=== PATIENT | female | born 2005 | race Caucasian/White ===

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

== ENCOUNTER 2025-01-17 18:41 | Emergency (ER) | payer SELFPAY ==
--- OUTSIDE RECORDS SUMMARY | 2025-01-17 18:46 | XMS REPORT | Continuity of Care Document ---
Author Name Unknown Address [address] [facility] [address] [place] [address] [facility] thconnect Address [address] [facility] 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 Name Role Phone Jose Collins Primary Care Physician + Melissa Del Rosario DNP Attending Clinician [phone] Doctor Unassigned, Morales-Sanchez Attending Clinician U LOGAN Ramon Attending Clinician LOGAN Basurto Attending Clinician Loagn Basurto MD Attending Clinician [phone] SELINA HART Attending Clinician Unavailable Jose Gallegos Attending Clinician + [phone] JOSE TAYLOR Attending Clinician Unavail LOGAN Scott Admitting Clinician Logan Basurto MD Admitting Clinician [phone] Payers Payer Name Policy Type Policy Number Effective Date Expirati on Date Source Problems Condition Name Condition Details Condition Category Status Onset Date Resolution Date Last Treatment Date Treating Clinician Comments Source Pyelonephr itis Pyelonephr itis Disease Active 05-16 00:00: 00 [facility] Nexplanon in place Nexplanon in place Disease Active 06-07 00:00: 00 [facility] No known active problems No known active problems Disease [facility] Allergies, Adverse Reactions, Alerts Allergy Name Allergy Type Status Severity Reaction(s) Onset Date Inactive Date Treating Clinician Comments Source NO KNOWN ALLERGIE S Drug Class Active [facility] Family History Family Member Diagnosis Comments Start Date Stop Date Sourc e Natural father Unive [facility] Maternal grandfather Hypertension [facility] Natural mother Unive [facility] Social History Social Habit Start Date Stop Date Quantity Comments Source History SDOH [facility] SDOH Alcohol Binge [facility] History SDOH Alcohol Comment [place] o f [facility] History of tobacco use Passive smoker [facility] Alcoholic beverage intake 2024-05-10 00:00:00 2024-05-10 00:00:00 Lifetime non-drinker (finding) [facility] Tobacco use and exposure 2024-04-11 00:00:00 2024-04-11 00:00:00 Smokeless tobacco non-user [facility] History of Social function 2024-04-11 00:00:00 2024-04-11 00:00:00 [facility] Alcohol intake 2022-05-16 00:00:00 2022-05-16 00:00:00 Lifetime non-drinker (finding) [facility] History SDOH Alcohol Frequency 2021-05-17 00:00:00 2021-05-17 00:00:00 1 [facility] Sex assigned at 2005 00:00:00 2005 00:00:00 [facility] Smoking Status Start Date Stop Date Source Never smoked tobacco [facility] Unknown if ever smoked Un[facility] Medications Ordered Medication Name Filled Medication Name Start Date Stop Date Current Medication? Ordering Clinician Indication Dosage Frequency Signature (SIG) Comments Components Source ciprofloxac in HCl 500 mg tablet 05-19 00:00: 00 05-23 04:59 :00 No [id number] 500mg Take 1 tablet by mouth every 12 (twelve) hours for 3 days. [facility] ondansetron (ZOFRAN (PF)) injection 8 mg 05-18 17:00: 00 05-21 16:59 :00 No 8mg 8 mg, Slow IV Push, Q6H, 12 doses, First dose (after last modificati on) on Thu05/18/22 at 1200, Last dose on Thu05/21/22 at 0600, Routine [facility] morpHINE (2 mg/mL) injection 2 mg 05-18 03:34: 16 Yes 2mg 2 mg, Slow IV Push, Q4HPRN, Starting on 05/17/22 at 2234, Until Discontinu ed, Routine, Pain (scale 7-10) [facility] acetaminoph en (TYLENOL) tablet 650 mg 05-18 01:24: 43 Yes 650mg 650 mg, Oral, Q6HPRN, Starting on 05/17/22 at 2024, Until Discontinu ed, Routine, Pain (scale 1-3), Pain (scale 4-6), Temp > 38.5 C [facility] NaCl 0.9% (NS) bolus infusion 500 mL 05-18 00:15: 00 05-18 00:25 :00 No 500mL at 999 mL/hr, 500 mL, IV Infusion, ONCE, 1 dose, On 05/17/22 at 1915, STAT [facility] proMETHazin e (PHENERGAN) 12.5 mg in NS 50 mL IV piggyback (CNR) 05-17 23:01: 46 Yes 12.5mg 12.5 mg, IV Piggyback, at 200 mL/hr Administer over 15 Minutes, Q4HPRN, Starting on 05/17/22 at 1801, Until Discontinu ed, Routine, Nausea and Vomiting (N/V) [facility] ceFAZolin (ANCEF) 1,000 mg in NaCl 0.9% (NS) 50 mL MINI-BAG 05-17 19:15: 00 Yes 1000mg 1,000 mg, Intravenou s, Q8H ABX, First dose on 05/17/22 at 1415, Until Discontinu ed, Administer over 30 Minutes, 50 mL
Reas on for Anti-Infec tive: Documented Infection< br>Documen negra Infection Site: Urine
D uration of Therapy: 7 days [facility] NaCl 0.9% (NS) bolus infusion 500 mL 05-17 18:15: 00 05-17 17:52 :00 No 500mL at 999 mL/hr, 500 mL, IV Infusion, ONCE, 1 dose, On Thu05/17/22 at 1315, STAT [facility] D5W 0.45% NaCl (1/2NS) IV infusion 1,000 mL 05-17 14:45: 00 05-18 22:31 :24 No 1000mL at 112 mL/hr, 1,000 mL, IV Infusion, CONTINUOUS , Starting on Thu05/17/22 at 0945, Until 05/18/22 at 1731, Routine [facility] ondansetron (ZOFRAN (PF)) injection 8 mg 05-17 01:45: 00 05-17 17:53 :00 No 8mg 8 mg, Slow IV Push, Q8H ABX, 3 doses, First dose (after last modificati on) on Thu05/16/22 at 204, Last dose on 05/17/22 at 1245, Routine [facility] D5W 0.9% NaCl (NS) IV infusion 1,000 mL 05-17 01:33: 00 05-17 13:04 :51 No 1000mL at 100 mL/hr, 1,000 mL, IV Infusion, CONTINUOUS , Starting on Thu05/16/22 at 204, Until 05/17/22 at 0804, Routine [facility] acetaminoph en (TYLENOL) tablet 650 mg 05-17 01:32: 05 05-18 01:24 :59 No 650mg 650 mg, Oral, Q6HPRN, Starting on Thu05/16/22 at 2031, Until 05/17/22 at 2023, Routine, Temp > 38.5 C [facility] lidocaine 4% (L-M-X 4) 4 % cream 05-17 01:29: 11 Yes Topical, PRN - SEE INSTRUCTIO NS, Starting on Thu05/16/22 at 2028, Until Discontinu ed, Routine, For use with IV insertion and blood draw procedures . [facility] ketorolac (TORADOL) injection 30 mg 05-17 01:26: 50 05-17 14:36 :24 No 30mg 30 mg, Slow IV Push, Q6HPRN, 4 doses, Starting on Thu05/16/22 at 2025, Until 05/17/22 at 0936, Routine, Pain (scale 4-6) [facility] No known medications 05-16 18:46: 28 No No known medication s [facility] benzonatate 100 mg capsule 03-26 00:00: 00 05-19 00:00 :00 No 1{capsu le} Take 1 capsule by mouth 3 (three) times daily. [facility] No known medications No [facility] No known medications No [facility] Immunizations Ordered Immunization Name Filled Immunization Name Date Status Comments Source HPV9 2021-06-07 00:00:00 Completed [facility] HPV9 2021-06-07 00:00:00 Completed [facility] HPV9 2021-06-07 00:00:00 Completed [facility] Meningococcal Vaccine 2018-06-30 00:00:00 Completed [facility] TDAP 2018-06-30 00:00:00 Completed [facility] Meningococcal Vaccine 2018-06-30 00:00:00 Completed [facility] TDAP 2018-06-30 00:00:00 Completed [facility] Meningococcal Vaccine 2018-06-30 00:00:00 Completed [facility] TDAP 2018-06-30 00:00:00 Completed [facility] Meningococcal Vaccine 2018-06-30 00:00:00 Completed [facility] TDAP 2018-06-30 00:00:00 Completed [facility] Meningococcal Vaccine 2018-06-30 00:00:00 Completed [facility] TDAP 2018-06-30 00:00:00 Completed [facility] Meningococcal Vaccine 2018-06-30 00:00:00 Completed [facility] TDAP 2018-06-30 00:00:00 Completed [facility] Meningococcal Vaccine 2018-06-30 00:00:00 Completed TDAP 2018-06-30 00:00:00 Completed Pneumococcal 13 Conjugate, PCV13 (Prevnar 13) 2007-03-25 00:00:00 Completed [facility] DTAP 2007-03-25 00:00:00 Completed [facility] Pneumococcal 13 Conjugate, PCV13 (Prevnar 13) 2007-03-25 00:00:00 Completed [facility] DTAP 2007-03-25 00:00:00 Completed [facility] Pneumococcal 13 Conjugate, PCV13 (Prevnar 13) 2007-03-25 00:00:00 Completed [facility] DTAP 2007-03-25 00:00:00 Completed [facility] Pneumococcal 13 Conjugate, PCV13 (Prevnar 13) 2007-03-25 00:00:00 Completed [facility] DTAP 2007-03-25 00:00:00 Completed [facility] DTAP 2007-03-25 00:00:00 Completed [facility] Pneumococcal 13 Conjugate, PCV13 (Prevnar 13) 2007-03-25 00:00:00 Completed [facility] Pneumococcal 13 Conjugate, PCV13 (Prevnar 13) 2007-03-25 00:00:00 Completed [facility] DTAP 2007-03-25 00:00:00 Completed Pneumococcal 13 Conjugate, PCV13 (Prevnar 13) 2007-03-25 00:00:00 Completed DTAP 2007-03-25 00:00:00 Completed [facility] MMR 2006-12-18 00:00:00 Completed [facility] Varicella (varivax)(chicken pox) 2006-12-18 00:00:00 Completed [facility] HIB 4 Dose Schedule 2006-12-18 00:00:00 Completed [facility] HEPATITIS A 2006-12-18 00:00:00 Completed [facility] MMR 2006-12-18 00:00:00 Completed [facility] Varicella (varivax)(chicken pox) 2006-12-18 00:00:00 Completed [facility] HIB 4 Dose Schedule 2006-12-18 00:00:00 Completed [facility] HEPATITIS A 2006-12-18 00:00:00 Completed [facility] MMR 2006-12-18 00:00:00 Completed [facility] Varicella (varivax)(chicken pox) 2006-12-18 00:00:00 Completed [facility] HIB 4 Dose Schedule 2006-12-18 00:00:00 Completed [facility] HEPATITIS A 2006-12-18 00:00:00 Completed [facility] MMR 2006-12-18 00:00:00 Completed [facility] Varicella (varivax)(chicken pox) 2006-12-18 00:00:00 Completed [facility] HIB 4 Dose Schedule 2006-12-18 00:00:00 Completed [facility] HEPATITIS A 2006-12-18 00:00:00 Completed [facility] MMR 2006-12-18 00:00:00 Completed [facility] HIB 4 Dose Schedule 2006-12-18 00:00:00 Completed [facility] Varicella (varivax)(chicken pox) 2006-12-18 00:00:00 Completed [facility] HEPATITIS A 2006-12-18 00:00:00 Completed [facility] MMR 2006-12-18 00:00:00 Completed [facility] Varicella (varivax)(chicken pox) 2006-12-18 00:00:00 Completed [facility] HIB 4 Dose Schedule 2006-12-18 00:00:00 Completed HEPATITIS A 2006-12-18 00:00:00 Completed MMR 2006-12-18 00:00:00 Completed Varicella (varivax)(chicken pox) 2006-12-18 00:00:00 Completed HIB 4 Dose Schedule 2006-12-18 00:00:00 Completed [facility] HEPATITIS A 2006-12-18 00:00:00 Completed [facility] Hep B, Adol or Pedi Dosage 2006-06-15 00:00:00 Completed [facility] Pneumococcal 13 Conjugate, PCV13 (Prevnar 13) 2006-06-15 00:00:00 Completed [facility] Polio (IPV/OPV) 2006-06-15 00:00:00 Completed [facility] DTAP 2006-06-15 00:00:00 Completed [facility] HIB 4 Dose Schedule 2006-06-15 00:00:00 Completed [facility] Hep B, Adol or Pedi Dosage 2006-06-15 00:00:00 Completed [facility] Pneumococcal 13 Conjugate, PCV13 (Prevnar 13) 2006-06-15 00:00:00 Completed [facility] Polio (IPV/OPV) 2006-06-15 00:00:00 Completed [facility] DTAP 2006-06-15 00:00:00 Completed [facility] HIB 4 Dose Schedule 2006-06-15 00:00:00 Completed [facility] Hep B, Adol or Pedi Dosage 2006-06-15 00:00:00 Completed [facility] Pneumococcal 13 Conjugate, PCV13 (Prevnar 13) 2006-06-15 00:00:00 Completed [facility] Polio (IPV/OPV) 2006-06-15 00:00:00 Completed [facility] DTAP 2006-06-15 00:00:00 Completed [facility] HIB 4 Dose Schedule 2006-06-15 00:00:00 Completed [facility] Hep B, Adol or Pedi Dosage 2006-06-15 00:00:00 Completed [facility] Pneumococcal 13 Conjugate, PCV13 (Prevnar 13) 2006-06-15 00:00:00 Completed [facility] Polio (IPV/OPV) 2006-06-15 00:00:00 Completed [facility] DTAP 2006-06-15 00:00:00 Completed [facility] DTAP 2006-06-15 00:00:00 Completed [facility] HIB 4 Dose Schedule 2006-06-15 00:00:00 Completed [facility] HIB 4 Dose Schedule 2006-06-15 00:00:00 Completed [facility] Hep B, Adol or Pedi Dosage 2006-06-15 00:00:00 Completed [facility] Pneumococcal 13 Conjugate, PCV13 (Prevnar 13) 2006-06-15 00:00:00 Completed [facility] Polio (IPV/OPV) 2006-06-15 00:00:00 Completed [facility] Hep B, Adol or Pedi Dosage 2006-06-15 00:00:00 Completed [facility] Pneumococcal 13 Conjugate, PCV13 (Prevnar 13) 2006-06-15 00:00:00 Completed [facility] Polio (IPV/OPV) 2006-06-15 00:00:00 Completed [facility] DTAP 2006-06-15 00:00:00 Completed HIB 4 Dose Schedule 2006-06-15 00:00:00 Completed Hep B, Adol or Pedi Dosage 2006-06-15 00:00:00 Completed Pneumococcal 13 Conjugate, PCV13 (Prevnar 13) 2006-06-15 00:00:00 Completed Polio (IPV/OPV) 2006-06-15 00:00:00 Completed DTAP 2006-06-15 00:00:00 Completed [facility] HIB 4 Dose Schedule 2006-06-15 00:00:00 Completed [facility] Hep B, Adol or Pedi Dosage 2006-04-14 00:00:00 Completed [facility] Pneumococcal 13 Conjugate, PCV13 (Prevnar 13) 2006-04-14 00:00:00 Completed [facility] Polio (IPV/OPV) 2006-04-14 00:00:00 Completed [facility] DTAP 2006-04-14 00:00:00 Completed [facility] HIB 4 Dose Schedule 2006-04-14 00:00:00 Completed [facility] Hep B, Adol or Pedi Dosage 2006-04-14 00:00:00 Completed [facility] Pneumococcal 13 Conjugate, PCV13 (Prevnar 13) 2006-04-14 00:00:00 Completed [facility] Polio (IPV/OPV) 2006-04-14 00:00:00 Completed [facility] DTAP 2006-04-14 00:00:00 Completed [facility] HIB 4 Dose Schedule 2006-04-14 00:00:00 Completed [facility] Hep B, Adol or Pedi Dosage 2006-04-14 00:00:00 Completed [facility] Pneumococcal 13 Conjugate, PCV13 (Prevnar 13) 2006-04-14 00:00:00 Completed [facility] Polio (IPV/OPV) 2006-04-14 00:00:00 Completed [facility] DTAP 2006-04-14 00:00:00 Completed [facility] HIB 4 Dose Schedule 2006-04-14 00:00:00 Completed [facility] Hep B, Adol or Pedi Dosage 2006-04-14 00:00:00 Completed [facility] Pneumococcal 13 Conjugate, PCV13 (Prevnar 13) 2006-04-14 00:00:00 Completed [facility] Polio (IPV/OPV) 2006-04-14 00:00:00 Completed [facility] DTAP 2006-04-14 00:00:00 Completed [facility] HIB 4 Dose Schedule 2006-04-14 00:00:00 Completed [facility] DTAP 2006-04-14 00:00:00 Completed [facility] HIB 4 Dose Schedule 2006-04-14 00:00:00 Completed [facility] Hep B, Adol or Pedi Dosage 2006-04-14 00:00:00 Completed [facility] Pneumococcal 13 Conjugate, PCV13 (Prevnar 13) 2006-04-14 00:00:00 Completed [facility] Polio (IPV/OPV) 2006-04-14 00:00:00 Completed [facility] Hep B, Adol or Pedi Dosage 2006-04-14 00:00:00 Completed [facility] Pneumococcal 13 Conjugate, PCV13 (Prevnar 13) 2006-04-14 00:00:00 Completed [facility] Polio (IPV/OPV) 2006-04-14 00:00:00 Completed [facility] DTAP 2006-04-14 00:00:00 Completed HIB 4 Dose Schedule 2006-04-14 00:00:00 Completed Hep B, Adol or Pedi Dosage 2006-04-14 00:00:00 Completed Pneumococcal 13 Conjugate, PCV13 (Prevnar 13) 2006-04-14 00:00:00 Completed Polio (IPV/OPV) 2006-04-14 00:00:00 Completed DTAP 2006-04-14 00:00:00 Completed [facility] HIB 4 Dose Schedule 2006-04-14 00:00:00 Completed [facility] Pneumococcal 13 Conjugate, PCV13 (Prevnar 13) 2006-02-12 00:00:00 Completed [facility] Polio (IPV/OPV) 2006-02-12 00:00:00 Completed [facility] DTAP 2006-02-12 00:00:00 Completed [facility] HIB 4 Dose Schedule 2006-02-12 00:00:00 Completed [facility] Hep B, Adol or Pedi Dosage 2006-02-12 00:00:00 Completed [facility] Pneumococcal 13 Conjugate, PCV13 (Prevnar 13) 2006-02-12 00:00:00 Completed [facility] Polio (IPV/OPV) 2006-02-12 00:00:00 Completed [facility] DTAP 2006-02-12 00:00:00 Completed [facility] HIB 4 Dose Schedule 2006-02-12 00:00:00 Completed [facility] Hep B, Adol or Pedi Dosage 2006-02-12 00:00:00 Completed [facility] Pneumococcal 13 Conjugate, PCV13 (Prevnar 13) 2006-02-12 00:00:00 Completed [facility] Polio (IPV/OPV) 2006-02-12 00:00:00 Completed [facility] DTAP 2006-02-12 00:00:00 Completed [facility] HIB 4 Dose Schedule 2006-02-12 00:00:00 Completed [facility] Hep B, Adol or Pedi Dosage 2006-02-12 00:00:00 Completed [facility] Pneumococcal 13 Conjugate, PCV13 (Prevnar 13) 2006-02-12 00:00:00 Completed [facility] DTAP 2006-02-12 00:00:00 Completed [facility] Polio (IPV/OPV) 2006-02-12 00:00:00 Completed [facility] HIB 4 Dose Schedule 2006-02-12 00:00:00 Completed [facility] DTAP 2006-02-12 00:00:00 Completed [facility] HIB 4 Dose Schedule 2006-02-12 00:00:00 Completed [facility] Hep B, Adol or Pedi Dosage 2006-02-12 00:00:00 Completed [facility] Pneumococcal 13 Conjugate, PCV13 (Prevnar 13) 2006-02-12 00:00:00 Completed [facility] Polio (IPV/OPV) 2006-02-12 00:00:00 Completed [facility] Hep B, Adol or Pedi Dosage 2006-02-12 00:00:00 Completed [facility] Pneumococcal 13 Conjugate, PCV13 (Prevnar 13) 2006-02-12 00:00:00 Completed [facility] Polio (IPV/OPV) 2006-02-12 00:00:00 Completed [facility] DTAP 2006-02-12 00:00:00 Completed HIB 4 Dose Schedule 2006-02-12 00:00:00 Completed Hep B, Adol or Pedi Dosage 2006-02-12 00:00:00 Completed Pneumococcal 13 Conjugate, PCV13 (Prevnar 13) 2006-02-12 00:00:00 Completed Polio (IPV/OPV) 2006-02-12 00:00:00 Completed DTAP 2006-02-12 00:00:00 Completed [facility] HIB 4 Dose Schedule 2006-02-12 00:00:00 Completed [facility] Hep B, Adol or Pedi Dosage 2006-02-12 00:00:00 Completed [facility] Hep B, Adol or Pedi Dosage 2005 00:00:00 Completed [facility] Hep B, Adol or Pedi Dosage 2005 00:00:00 Completed [facility] Hep B, Adol or Pedi Dosage 2005 00:00:00 Completed [facility] Hep B, Adol or Pedi Dosage 2005 00:00:00 Completed [facility] Hep B, Adol or Pedi Dosage 2005 00:00:00 Completed [facility] Hep B, Adol or Pedi Dosage 2005 00:00:00 Completed Hep B, Adol or Pedi Dosage 2005 00:00:00 Completed [facility] HEPATITIS A Unknown Completed [facility] Meningococcal Vaccine Unknown Completed [facility] MMR Unknown Completed [facility] TDAP Unknown Completed [facility] Varicella (varivax)(chicken pox) Unknown Completed [facility] HPV9 Unknown Completed [facility] DTAP Unknown Completed [facility] HIB 4 Dose Schedule Unknown Completed [facility] Hep B, Adol or Pedi Dosage Unknown Completed [facility] Pneumococcal 13 Conjugate, PCV13 (Prevnar 13) Unknown Completed [facility] Polio (IPV/OPV) Unknown [facility] HEPATITIS A Unknown Completed [facility] Meningococcal Vaccine Unknown Completed [facility] MMR Unknown Completed [facility] TDAP Unknown Completed [facility] Varicella (varivax)(chicken pox) Unknown Completed [facility] HPV9 Unknown Completed [facility] DTAP Unknown Completed [facility] HIB 4 Dose Schedule Unknown Completed [facility] Hep B, Adol or Pedi Dosage Unknown Completed [facility] Pneumococcal 13 Conjugate, PCV13 (Prevnar 13) Unknown Completed [facility] Polio (IPV/OPV) Unknown [facility] Vital Signs Vital Name Observation Time Observation Value Comments S ource Systolic blood pressure 2024-05-09 21:32:00 114 mm[Hg] [facility] Diastolic blood pressure 2024-05-09 21:32:00 71 mm[Hg] [facility] Heart rate 2024-05-09 21:32:00 81 /min [facility] Respiratory rate 2024-05-09 21:32:00 18 /min [facility] Body height 2024-05-09 21:32:00 160 cm [facility] Body weight 2024-05-09 21:32:00 71.668 kg [facility] BMI 2024-05-09 21:32:00 27.99 kg/m2 [facility] Body mass index (BMI) [Percentile] Per age and sex 2024-05-09 21:32:00 91.24 % [facility] Systolic blood pressure 2024-04-11 19:48:00 119 mm[Hg] [facility] Diastolic blood pressure 2024-04-11 19:48:00 75 mm[Hg] [facility] Heart rate 2024-04-11 19:48:00 93 /min [facility] Respiratory rate 2024-04-11 19:48:00 18 /min [facility] Body height 2024-04-11 19:48:00 160 cm [facility] Body weight 2024-04-11 19:48:00 71.215 kg [facility] BMI 2024-04-11 19:48:00 27.81 kg/m2 [facility] Body mass index (BMI) [Percentile] Per age and sex 2024-04-11 19:48:00 90.95 % [facility] Systolic blood pressure 2022-05-19 13:00:00 147 mm[Hg] [facility] Diastolic blood pressure 2022-05-19 13:00:00 92 mm[Hg] [facility] Heart rate 2022-05-19 13:00:00 75 /min [facility] Body temperature 2022-05-19 13:00:00 37 Susanna [facility] Respiratory rate 2022-05-19 13:00:00 18 /min [facility] Oxygen saturation in Arterial blood by Pulse oximetry 2022-05-19 13:00:00 98 /min [facility] Body height 2022-05-17 00:00:00 160 cm [facility] Body weight 2022-05-17 00:00:00 71.7 kg [facility] BMI 2022-05-17 00:00:00 28.01 kg/m2 [facility] Body mass index (BMI) [Percentile] Per age and sex 2022-05-17 00:00:00 93.42 % [facility] Systolic blood pressure 2021-05-15 15:06:00 120 mm[Hg] [facility] Diastolic blood pressure 2021-05-15 15:06:00 82 mm[Hg] [facility] Heart rate 2021-05-15 15:06:00 113 /min [facility] Body temperature 2021-05-15 15:06:00 36.56 Susanna [facility] Respiratory rate 2021-05-15 15:06:00 19 /min [facility] Body height 2021-05-15 15:06:00 160 cm [facility] Body weight 2021-05-15 15:06:00 72.122 kg [facility] BMI 2021-05-15 15:06:00 28.17 kg/m2 [facility] Oxygen saturation in Arterial blood by Pulse oximetry 2021-05-15 15:06:00 98 /min [facility] Systolic blood pressure 2024-05-09 21:32:00 114 mm[Hg] [facility] Diastolic blood pressure 2024-05-09 21:32:00 71 mm[Hg] [facility] Heart rate 2024-05-09 21:32:00 81 /min [facility] Respiratory rate 2024-05-09 21:32:00 18 /min [facility] Body height 2024-05-09 21:32:00 160 cm [facility] Body weight 2024-05-09 21:32:00 71.668 kg [facility] BMI 2024-05-09 21:32:00 27.99 kg/m2 [facility] Body mass index (BMI) [Percentile] Per age and sex 2024-05-09 21:32:00 91.24 % [facility] Body temperature 2022-05-19 13:00:00 37 Susanna [facility] Oxygen saturation in Arterial blood by Pulse oximetry 2022-05-19 13:00:00 98 /min [facility] Procedures Procedure Date / Time Performed Performing Clinician Source GC & CHLAMYDIA AMPLIFIED ASSAY 2024-04-11 19:56:00 Melissa Del Rosario [facility] EXTERNAL PROVIDER RECORDS 2022-06-10 05:01:00 Do ctor Unassigned, Morales-Sanchez [facility] BASIC METABOLIC PANEL (NA, K, CL, CO2, GLUCOSE, BUN, CREATININE, CA) 2022-05-19 11:33:00 Maurice [facility] US RETROPERITONEAL COMPLETE 2022-05-18 19:29:41 Waleska [facility] BASIC METABOLIC PANEL (NA, K, CL, CO2, GLUCOSE, BUN, CREATININE, CA) 2022-05-18 19:16:00 Parish [facility] EXTRA TUBE LT. GREEN 2022-05-18 19:16:00 Isaak [facility] BASIC METABOLIC PANEL (NA, K, CL, CO2, GLUCOSE, BUN, CREATININE, CA) 2022-05-18 10:59:00 Parish [facility] BASIC METABOLIC PANEL (NA, K, CL, CO2, GLUCOSE, BUN, CREATININE, CA) 2022-05-18 03:20:00 Parish [facility] BASIC METABOLIC PANEL (NA, K, CL, CO2, GLUCOSE, BUN, CREATININE, CA) 2022-05-17 19:40:00 Parish [facility] HIV 1/2 AG-AB WITH REFLEX 2022-05-17 19:40:00 Rj Alejandre [facility] HIV 1/2 AG-AB WITH REFLEX 2022-05-17 19:40:00 Rj Alejandre [facility] OSMOLALITY URINE 2022-05-17 15:40:00 [facility] CREATININE, URINE RANDOM 2022-05-17 15:40:00 Prisca [facility] SODIUM, URINE RANDOM 2022-05-17 15:40:[address] [facility] URINALYSIS 2022-05-17 10:08:00 Caroline Yates [facility] PHOSPHORUS 2022-05-17 09:54:00 Parish Candelario [facility] CREATINE KINASE 2022-05-17 09:54:00 Parish Candelario [facility] BASIC METABOLIC PANEL (NA, K, CL, CO2, GLUCOSE, BUN, CREATININE, CA) 2022-05-17 09:54:00 Milan [facility] LIPASE 2022-05-17 01:48:00 Milan [facility] COMP. METABOLIC PANEL ([id number]) 2022-05-17 01:48:00 [place] [facility] CBC WITH DIFF 2022-05-17 01:48:00 [place] Caroline [facility] CBC WITH DIFF 2022-05-17 01:48:00 Milan [facility] VACCINATIONS - CONSENTS, ELIGIBILITY, HISTORY 2021-06-06 05:01:00 Doctor Unassigned, [facility] ASSIGNMENT OF BENEFITS 2021-05-15 14:57:00 Docto r Unassigned, [facility] Encounters Start Date/Time End Date/Time Encounter Type Admission Type Attending [facility] Facility Care Department Encounter ID Source 2024-05-09 16:30:00 2024-05-09 17:00:00 Office Visit MagdyMelissa scott [facility] [id number] 350.1.13.10 4.2.7.2.686 [id number] [facility] 2024-05-09 16:30:00 2024-05-09 16:30:00 Outpatient R CARIN MELISSA [facility] [id number] [facility] 2024-04-25 16:30:00 2024-04-25 16:30:00 Outpatient R MELISSA DEL ROSARIO [facility] [id number] [facility] 2024-04-11 14:30:00 2024-04-11 15:03:52 Outpatient R CARIN MELISSA [facility] [id number] [facility] 2024-04-11 14:30:00 2024-04-11 15:03:52 Office Visit Melissa Del Rosario [facility] 1..840.114 350.1.13.10 4.2.7.2.686 [id number] [facility] 2022-06-10 00:00:00 2022-06-10 00:00:00 Orders Only Doctor Unassigned, Morales-Sanchez [facility] 1.2.840.114 350.1.13.10 4.2.7.2.686 [id number] [facility] 2022-05-16 18:35:00 2022-05-19 12:00:00 Inpatient LOGAN GARCIA MARIE [facility] PED [id number] [facility] 2022-05-16 18:35:00 2022-05-19 12:00:00 Hospital Encounter Logan Ellis [facility] ([facility]) 1.2840.114 350.1.13.10 4.2.7.2.686 [id number] [facility] 2021-06-07 14:00:00 2021-06-07 14:00:00 Outpatient SELINA HINDS [facility] [id number] [facility] 2021-06-06 00:00:00 2021-06-06 00:00:00 Orders Only Doctor Unassigned, Morales-Sanchez [facility] 1.2840.114 350.1.13.10 4.2.7.2.686 [id number] [facility] 2021-05-28 00:00:00 2021-05-28 00:00:00 Telephone [facility] 1.2840.114 350.1.13.10 4.2.7.2.686 [id number] [facility] 2021-05-17 13:00:00 2021-05-17 13:00:00 Outpatient SELINA HINDS [facility] [id number] [facility] 2021-05-15 09:57:17 2021-05-15 10:21:14 Office Visit [facility] 1.2840.114 350.1.13.10 4.2.7.2.686 [id number] [facility] 2021-05-15 09:40:00 2021-05-15 09:40:00 Outpatient R TAYLOR [facility] [id number] [facility] 2021-05-15 00:00:00 2021-05-15 00:00:00 Orders Only Doctor Unassigned, Morales-Sanchez [facility] 1.2840.114 350.1.13.10 4.2.7.2.686 [id number] [facility] Results Test Description Test Time Test Comments Results Result Co mments Source [facility] METABOLIC PANEL (NA, K, CL, CO2, GLUCOSE, BUN, CREATININE, CA)2022-05-18 19:54:43* Test Item Value Reference Range Interpretation Comme nts NA (test code = 1742985050) 142 mmol/L 135-145 K (test code = 1907095539) 3.8 mmol/L 3.5-5.0 Slight hemolysis CL (test code = 7390860993) 109 mmol/L 98-108 H CO2 TOTAL (test code = 0740919232) 25 mmol/L 23-31 AGAP (test code = 8618354558) 2-16 BUN (test code = 8860172573) 7 mg/dL 7-23 Slight hemolysis GLUCOSE (test code = 4066469753) 58 mg/dL 70-110 L CREATININE (test code = 8214653518) 1.31 mg/dL 0.50-1.04 H CALCIUM (test code = 6553129117) 8.5 mg/dL 8.6-10.6 L JOURDAN (test code = JOURDAN) Association of Glomerular Filtration Rate (GFR) and Staging of Kidney Disease* + -----+ --------+ +| GFR (mL/min/1.73 m2) ?| With Kidney Damage ?| ?Without Kidney Damage+ +------- +---- --+| ?>90 ?| ?Stage one ?| ? Normal ?+ ------+ ---------+--------- +| ?60-89 ?| ?Stage two ?| ? Decreased GFR ? + -----+ --------+ +| ?30-59 ?| ?Stage three ?| ? Stage three ? + -----+ --------+ +| ?15-29 ?| ?Stage four ? | ? Stage four ?+ ------+ ---------+--------- +| ?<15 (or dialysis) ? ?| ?Stage five ? | ? Stage five ?+ ------+ ---------+--------- + *Each stage assumes the associated GFR level has been in effect for at least three months. ?Stages 1 to 5, with or without kidney disease, indicate chronic kidney disease. Notes: Determination of stages one and two (with eGFR >59mL/min/1.73 m2) requires estimation of kidney damage for at least three months as defined by structural or functional abnormalities of the kidney, manifested by either:Pathological abnormalities or Markers of kidney damage (including abnormalities in the composition of the blood or urine or abnormalities in imaging tests). Lab Interpretation (test code = 38846-1) Abnormal [facility] METABOLIC PANEL (NA, K, CL, CO2, GLUCOSE, BUN, CREATININE, CA)2022-05-18 11:37:02* Test Item Value Reference Range Interpretation Comme nts NA (test code = 4372959482) 138 mmol/L 135-145 K (test code = 7122974397) 3.5 mmol/L 3.5-5.0 CL (test code = 2324270536) 112 mmol/L 98-108 H CO2 TOTAL (test code = 4211942748) 21 mmol/L 23-31 L AGAP (test code = 4229807260) 2-16 BUN (test code = 1918669392) 9 mg/dL 7-23 GLUCOSE (test code = 1355664089) 109 mg/dL 70-110 CREATININE (test code = 4616242020) 1.54 mg/dL 0.50-1.04 H CALCIUM (test code = 3436340602) 7.9 mg/dL 8.6-10.6 L JOURDAN (test code = JOURDAN) Association of Glomerular Filtration Rate (GFR) and Staging of Kidney Disease* + --+ --+ ------+| GFR (mL/min/1.73 m2) ?| With Kidney Damage ?| ?Without Kidney Damage+ --------+ --------+ +| ?>90 ?| ?Stage one ?| ? Normal ?+ ---+ ---+ -------+| ?60-89 ?| ?Stage two ?| ? Decreased GFR ? + --+ --+ ------+| ?30-59 ?| ?Stage three ?| ? Stage three ? + --+ --+ ------+| ?15-29 ?| ?Stage four ? | ? Stage four ?+ ---+ ---+ -------+| ?<15 (or dialysis) ? ?| ?Stage five ? | ? Stage five ?+ ---+ ---+ -------+ *Each stage assumes the associated GFR level has been in effect for at least three months. ?Stages 1 to 5, with or without kidney disease, indicate chronic kidney disease. Notes: Determination of stages one and two (with eGFR >59mL/min/1.73 m2) requires estimation of kidney damage for at least three months as defined by structural or functional abnormalities of the kidney, manifested by either:Pathological abnormalities or Markers of kidney damage (including abnormalities in the composition of the blood or urine or abnormalities in imaging tests). Lab Interpretation (test code = 86285-4) Abnormal [facility] METABOLIC PANEL (NA, K, CL, CO2, GLUCOSE, BUN, CREATININE, CA)2022-05-18 03:39:53* Test Item Value Reference Range Interpretation Comme nts NA (test code = 3074533652) 140 mmol/L 135-145 K (test code = 1875803811) 3.5 mmol/L 3.5-5.0 CL (test code = 4873024321) 113 mmol/L 98-108 H CO2 TOTAL (test code = 9107613360) 21 mmol/L 23-31 L AGAP (test code = 3158794711) 2-16 BUN (test code = 4050297465) 9 mg/dL 7-23 GLUCOSE (test code = 8306167605) 108 mg/dL 70-110 CREATININE (test code = 4424177431) 1.85 mg/dL 0.50-1.04 H CALCIUM (test code = 9393188456) 7.8 mg/dL 8.6-10.6 L JOURDAN (test code = JOURDAN) Association of Glomerular Filtration Rate (GFR) and Staging of Kidney Disease* + --+ --+ ------+| GFR (mL/min/1.73 m2) ?| With Kidney Damage ?| ?Without Kidney Damage+ --------+ --------+ +| ?>90 ?| ?Stage one ?| ? Normal ?+ ---+ ---+ -------+| ?60-89 ?| ?Stage two ?| ? Decreased GFR ? + --+ --+ ------+| ?30-59 ?| ?Stage three ?| ? Stage three ? + --+ --+ ------+| ?15-29 ?| ?Stage four ? | ? Stage four ?+ ---+ ---+ -------+| ?<15 (or dialysis) ? ?| ?Stage five ? | ? Stage five ?+ ---+ ---+ -------+ *Each stage assumes the associated GFR level has been in effect for at least three months. ?Stages 1 to 5, with or without kidney disease, indicate chronic kidney disease. Notes: Determination of stages one and two (with eGFR >59mL/min/1.73 m2) requires estimation of kidney damage for at least three months as defined by structural or functional abnormalities of the kidney, manifested by either:Pathological abnormalities or Markers of kidney damage (including abnormalities in the composition of the blood or urine or abnormalities in imaging tests). Lab Interpretation (test code = 10283-5) [facility] [id number] 20:49:37* Test Item Value Reference Range Interpretation Comme [facility] HIV Semi-quantitative (test code = 95492-1) Negative Negative JOURDAN (test code = JOURDAN) Non-reactive for HIV-1 antigen and HIV-1/HIV-2 antibodies. ?No laboratory evidence of HIV infection. ?Repeat in 2-4 weeks if acute HIV infection is suspected. [facility] (NA, K, CL, CO2, GLUCOSE, BUN, CREATININE, CA)2022-05-17 20:09:34* Test Item Value Reference Range Interpretation Comme [facility] NA (test code = 2342954760) 140 mmol/L 135-145 K (test code = 8008800086) 3.6 mmol/L 3.5-5.0 Slight hemolysis CL (test code = 1401501765) 111 mmol/L 98-108 H CO2 TOTAL (test code = 4255928338) 22 mmol/L 23-31 L AGAP (test code = 9470468700) 2-16 BUN (test code = 6641044340) 12 mg/dL 7-23 Slight hemolysis GLUCOSE (test code = 2454477800) 95 mg/dL 70-110 CREATININE (test code = 1415588572) 2.16 mg/dL 0.50-1.04 H CALCIUM (test code = 5402559665) 8.0 mg/dL 8.6-10.6 L JOURDAN (test code = JOURDAN) Association of Glomerular Filtration Rate (GFR) and Staging of Kidney Disease* + -----+ --------+ +| GFR (mL/min/1.73 m2) ?| With Kidney Damage ?| ?Without Kidney Damage+ +------- +---- --+| ?>90 ?| ?Stage one ?| ? Normal ?+ ------+ ---------+--------- +| ?60-89 ?| ?Stage two ?| ? Decreased GFR ? + -----+ --------+ +| ?30-59 ?| ?Stage three ?| ? Stage three ? + -----+ --------+ +| ?15-29 ?| ?Stage four ? | ? Stage four ?+ ------+ ---------+--------- +| ?<15 (or dialysis) ? ?| ?Stage five ? | ? Stage five ?+ ------+ ---------+--------- + *Each stage assumes the associated GFR level has been in effect for at least three months. ?Stages 1 to 5, with or without kidney disease, indicate chronic kidney disease. Notes: Determination of stages one and two (with eGFR >59mL/min/1.73 m2) requires estimation of kidney damage for at least three months as defined by structural or functional abnormalities of the kidney, manifested by either:Pathological abnormalities or Markers of kidney damage (including abnormalities in the composition of the blood or urine or abnormalities in imaging tests). Lab Interpretation (test code = 02035-8) [facility] [id number] 15:23:34* Test Item Value Reference Range Interpretation Comme nts CK (test code = 4553680748) 58 U/L 33-194 Lab Interpretation (test cod e = 49525-4) [facility] 15:23:34* Test Item Value Reference Range Interpretation Comme nts PHOSPHORUS (test code = 9720219478) 4.7 mg/dL 2.5-5.0 Lab Interpretation (test cod e = 23381-1) [facility] (NA, K, CL, CO2, GLUCOSE, BUN, CREATININE, CA)2022-05-17 10:14:52* Test Item Value Reference Range Interpretation Comme nts NA (test code = 9520699012) 142 mmol/L 135-145 K (test code = 8640903939) 3.7 mmol/L 3.5-5.0 CL (test code = 1974111601) 113 mmol/L 98-108 H CO2 TOTAL (test code = 1552801437) 23 mmol/L 23-31 AGAP (test code = 9715192026) 2-16 BUN (test code = 9062764092) 13 mg/dL 7-23 GLUCOSE (test code = 7670037621) 113 mg/dL 70-110 H CREATININE (test code = 9451582904) 2.33 mg/dL 0.50-1.04 H CALCIUM (test code = 7234401982) 7.9 mg/dL 8.6-10.6 L JOURDAN (test code = JOURDAN) Association of Glomerular Filtration Rate (GFR) and Staging of Kidney Disease* + --+ --+ ------+| GFR (mL/min/1.73 m2) ?| With Kidney Damage ?| ?Without Kidney Damage+ --------+ --------+ +| ?>90 ?| ?Stage one ?| ? Normal ?+ ---+ ---+ -------+| ?60-89 ?| ?Stage two ?| ? Decreased GFR ? + --+ --+ ------+| ?30-59 ?| ?Stage three ?| ? Stage three ? + --+ --+ ------+| ?15-29 ?| ?Stage four ? | ? Stage four ?+ ---+ ---+ -------+| ?<15 (or dialysis) ? ?| ?Stage five ? | ? Stage five ?+ ---+ ---+ -------+ *Each stage assumes the associated GFR level has been in effect for at least three months. ?Stages 1 to 5, with or without kidney disease, indicate chronic kidney disease. Notes: Determination of stages one and two (with eGFR >59mL/min/1.73 m2) requires estimation of kidney damage for at least three months as defined by structural or functional abnormalities of the kidney, manifested by either:Pathological abnormalities or Markers of kidney damage (including abnormalities in the composition of the blood or urine or abnormalities in imaging tests). Lab Interpretation (test code = 89161-4) Abnormal [facility]. METABOLIC PANEL ([id number])2022-05-17 02:13:26* Test Item Value Reference Range Interpretation Comme nts NA (test code = 8425728139) 141 mmol/L 135-145 K (test code = 8878407461) 3.5 mmol/L 3.5-5.0 CL (test code = 9274161146) 111 mmol/L 98-108 H CO2 TOTAL (test code = 2063536888) 23 mmol/L 23-31 AGAP (test code = 0613218633) 2-16 BUN (test code = 8836689874) 13 mg/dL 7-23 GLUCOSE (test code = 8981692375) 90 mg/dL 70-110 CREATININE (test code = 1404711444) 2.38 mg/dL 0.50-1.04 H TOTAL BILI (test code = 3473668166) 0.7 mg/dL 0.1-1.1 CALCIUM (test code = 3869220034) 8.6 mg/dL 8.6-10.6 T PROTEIN (test code = 4129544879) 6.8 g/dL 6.3-8.2 ALBUMIN (test code = 8448685464) 4.1 g/dL 3.5-5.0 ALK PHOS (test code = 0016622801) 57 U/L 35-165 ALTv (test code = 1742-6) 13 U/L 5-35 AST(SGOT) (test code = 7088438696) 29 U/L 13-40 JOURDAN (test code = JOURDAN) Association of Glomerular Filtration Rate (GFR) and Staging of Kidney Disease* + --+ --+ ------+| GFR (mL/min/1.73 m2) ?| With Kidney Damage ?| ?Without Kidney Damage+ --------+ --------+ +| ?>90 ?| ?Stage one ?| ? Normal ?+ ---+ ---+ -------+| ?60-89 ?| ?Stage two ?| ? Decreased GFR ? + --+ --+ ------+| ?30-59 ?| ?Stage three ?| ? Stage three ? + --+ --+ ------+| ?15-29 ?| ?Stage four ? | ? Stage four ?+ ---+ ---+ -------+| ?<15 (or dialysis) ? ?| ?Stage five ? | ? Stage five ?+ ---+ ---+ -------+ *Each stage assumes the associated GFR level has been in effect for at least three months. ?Stages 1 to 5, with or without kidney disease, indicate chronic kidney disease. Notes: Determination of stages one and two (with eGFR >59mL/min/1.73 m2) requires estimation of kidney damage for at least three months as defined by structural or functional abnormalities of the kidney, manifested by either:Pathological abnormalities or Markers of kidney damage (including abnormalities in the composition of the blood or urine or abnormalities in imaging tests). Lab Interpretation (test code = 19896-9) [facility]:13:26* Test Item Value Reference Range Interpretation Comme nts LIPASE (test code = 6920699839) 32 U/L 0-220 Lab Interpretation (test cod e = 53377-4) Normal [facility] WITH [id number] 02:10:49* Test Item Value Reference Range Interpretation Comme nts WBC (test code = 6690-2) See_Comment H [Automated Visualnesta Kampyle] The system which generated this result transmitted reference range: 4.50 - 13.50 10*3/?L. The reference range was not used to interpret this result as normal/abnormal. RBC (test code = 789-8) See_Comment [Automated Visualnesta Kampyle] The system which generated this result transmitted reference range: 4.10 - 5.10 10*6/?L. The reference range was not used to interpret this result as normal/abnormal. HGB (test code = 718-7) 12.9 g/dL 12.0-16.0 HCT (test code = 4544-3) 38.1 % 36.0-45.0 MCV (test code = 787-2) 92.5 fL 78.0-95.0 MCH (test code = 785-6) 31.3 pg 26.0-32.0 MCHC (test code = 786-4) 33.9 g/dL 32.0-36.0 RDW-SD (test code = 84981-4) 44.9 fL 38.5-49.0 RDW-CV (test code = 788-0) 13.2 % 11.5-14.0 PLT (test code = 777-3) See_Comment [Automated Visualnesta ge] The system which generated this result transmitted reference range: 135 - 361 10*3/?L. The reference range was not used to interpret this result as normal/abnormal. MPV (test code = 75116-3) 10.0 fL 9.4-13.3 IPF % (test code = 3957241452) 2.4 % 0.0-7.4 Platelet count measured by fluorescence method. NRBC/100 WBC (test code = 4874301660) See_Comment [Automated Sticher ssage] The system which generated this result transmitted reference range: 0.0 - 10.0 /100 WBCs. The reference range was not used to interpret this result as normal/abnormal. NRBC x10^3 (test code = 8600648422) <0.01 See_Comment [Automated Visualnesta ge] The system which generated this result transmitted reference range: 10*3/?L. The reference range was not used to interpret this result as normal/abnormal. GRAN MAT (NEUT) % (test code = 770-8) 78.6 % IMM GRAN % (test code = 6691303455) 0.40 % LYMPH % (test code = 736-9) 12.7 % MONO % (test code = 5905-5) 7.9 % EOS % (test code = 713-8) 0.2 % BASO % (test code = 706-2) 0.2 % GRAN MAT x10^3(ANC) (test code = 3707648826) 12.57 10*3/uL 1.50-10.30 H IMM GRAN x10^3 (test code = 2048461388) 0.06 10*3/uL 0.00-0.06 LYMPH x10^3 (test code = 731-0) 2.04 10*3/uL 0.70-7.40 MONO x10^3 (test code = 742-7) 1.26 10*3/uL 0.00-0.50 H EOS x10^3 (test code = 711-2) 0.04 10*3/uL 0.00-0.40 BASO x10^3 (test code = 704-7) 0.04 10*3/uL 0.00-0.10 Lab Interpretation (test code = 66596-9) [facility]"
[2025-01-17] MEDS ORDERED: ONDANSETRON 4 MG/2 ML VIAL ONE (20:45)
[2025-01-17 20:46] LABS: Absolute Basophils 0.1 K/uL (0-0.5); Absolute Lymphocytes (CBC) 1.2 K/uL (0.7-4.9); Absolute Monocytes 1.2 K/uL (0.1-1.3); Absolute Neutrophil 13.1 K/uL (1.8-8.0); Basophils % 0.4 % (0-1.3); Hematocrit 41.7 % (36.0-45.0); Hemoglobin 14.6 g/dL (12.0-15.0); Lymphocytes % 7.5 % (15.3-44.8); MCHC 34.9 g/dL (32.0-36.0); MCV 94.5 fL (80-100); MPV 8.2 fL (7.6-11.3); Monocytes % 7.8 % (3.3-12.3); Neutrophils % 84.3 % (41.7-73.7); Platelets 241 thou/uL (152-406); RBC Red Blood Cell Count 4.41 M/uL (3.86-4.86); Red Cell Distribution Width 13.6 % (12.1-15.2)
[2025-01-17] MEDS ORDERED: NA CHLORIDE 0.9% 0 ML ONE (20:46)
[2025-01-17 20:47] LABS: Specific Gravity 1.023 (1.005-1.030)
[2025-01-17] MEDS ORDERED: NA CHLORIDE 0.9% 1,000 ML ONE (20:47)
[2025-01-17 20:49] LABS: Specific Gravity 1.023 (1.005-1.030); Sqamous Epithelial <5 /HPF (None Seen); Urine Bacteria <20 /HPF (<20); Urine Bilirubin NEGATIVE (Negative); Urine Blood 2+ (Negative); Urine Clarity Extremely Turbid (Clear); Urine Color Yellow (Yellow); Urine Crystals Unidentified Few /HPF (None Seen); Urine Culture Reflex Order REFLEXED; Urine Glucose NEGATIVE (Negative); Urine Ketones 2+ (Negative); Urine Microscopic Reflex YN ORDER UMIC; Urine Mucus 4+ /HPF (None Seen); Urine Nitrite 2+ (Negative); Urine Protein 1+ (Negative); Urine RBC 21-50 /HPF (None Seen); Urine Urobilinogen Normal (Normal); Urine WBC >50 /HPF (<5); Urine WBC Clump Rare /HPF (None Seen); Urine Yeast (Budding) Trace /HPF (None Seen); Urine pH 6.5 (5.0-7.0)
[2025-01-17 20:54] LABS: Monoscreen NEG (NEG)
[2025-01-17 21:02] LABS: Albumin 4.1 g/dL (3.4-5.0); Albumin/Globulin Ratio 0.9 (1.1-1.8); Anion Gap 7.5 mEq/L (5.0-15.0); Bilirubin Total 0.7 mg/dL (0.2-1.0); Globulin 4.5 g/dL (2.3-3.5); Potassium 3.5 mEq/L (3.5-5.1); Protein, Total 8.6 g/dL (6.4-8.2)
[2025-01-17 21:06] LABS: Influenza A Ag Negative; Influenza B Ag Negative; SARS-CoV-2 Antigen Rapid Res Negative (Negative)
[2025-01-17] MEDS ORDERED: CEFTRIAXONE 1000 MG/VIAL ONE (21:47)
--- NOTE | 2025-01-17 21:51 | EDPHYS ---
Physician Documentation [facility] Name: Lauren Gomez Age: 19 yrs Sex: Female : 2005 Arrival Date: 01/17/2025 Time: 18:41 Bed DX3 Private MD: ED Physician Ethan Burroughs HPI: 01/17 19:31 This 19 yrs old Female presents to ER via Unassigned with complaints of Abdominal Pain, kb Nausea/Vomiting. 19:31 PT is a 19 year old female who presents for chills, headache, back pain, vomiting, kb nausea, cough, congestion that started 2 days ago. Denies diarrhea, sore throat. Reports abd pain as well. . 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 - Infectious Disease History:: Denies. - Social history:: Smoking status: Patient uses street drugs, marijuana. ROS: 19:31 Constitutional: As per HPI kb Exam: 19:31 Constitutional: This is a well developed, well nourished patient who is awake, alert, kb and in no acute distress. Head/Face: Normocephalic, atraumatic. ENT: Moist Mucous membranes Cardiovascular: Regular rate Respiratory: Respirations even and unlabored. No increased work of breathing. Talking in full sentences Abdomen/GI: Soft, non-tender. No distention Skin: Warm, dry with normal turgor. Normal color. MS/ Extremity: Pulses equal, no cyanosis. Neurovascular intact. Full, normal range of motion. Neuro: Awake and alert, GCS 15, oriented to person, place, time, and situation. Vital Signs: 19:32 BP 125 / 88; Pulse 125; Resp 18; Temp 97.7; Pulse Ox 96% on R/A; iw 21:53 BP 121 / 66; Pulse 90; Resp 18; Temp 98; Pulse Ox 98% ; Weight 74.84 kg; vc1 MDM: 19:14 Medical Screening Exam initiated kb 21:49 Differential diagnosis: non-specific abd pain, urinary tract infection, kb gastroenteritis. Data reviewed: vital signs, nurses notes. Historians other than the Patient: Spouse/Significant Other: significant other. Counseling: I had a detailed discussion with the patient and/or guardian regarding the historical points, exam findings, and any diagnostic results supporting the discharge/admit diagnosis, lab results, the need for outpatient follow up, a family practitioner, to return to the emergency department if symptoms worsen or persist or if there are any questions or concerns that arise at home. 01/17 19:34 Order name: CBC with Diff; Complete Time: 20:59 kb 01/17 19:34 Order name: CMP; Complete Time: 21:04 kb 01/17 19:34 Order name: Lipase; Complete Time: 21:04 kb 01/17 19:34 Order name: Test, Urine; Complete Time: 20:59 kb 01/17 19:34 Order name: Urinalysis w/ reflexes; Complete Time: 20:59 kb 01/17 19:34 Order name: COVID-19 Ag + Flu A+B Ag; Complete Time: 21:08 kb 01/17 19:34 Order name: Group A Streptococcus Rapid; Complete Time: 21:04 kb 01/17 19:34 Order name: [place] Screen Profile; Complete Time: 20:59 kb 01/17 20:55 Order name: Urine Culture [facility] 01/17 21:06 Order name: Throat Culture [facility] 01/17 19:34 Order name: IV Saline Lock; Complete Time: 20:40 kb 01/17 19:34 Order name: Labs collected and sent; Complete Time: 20:40 kb 01/17 21:28 Order name: Vital Signs; Complete Time: 21:53 kb Administered Medications: 20:53 Drug: Ondansetron IVP 4 mg IVP once; over 2 minutes Route: IVP; Site: right antecubital;vc1 21:10 Follow up: Response: No adverse reaction; Marked relief of symptoms; Nausea is decreasedvc1 20:53 Drug: NS 0.9% IV 1000 ml IV at 1 bolus Per protocol; to be given as a bolus over 60 vc1 minutes Route: IV; Rate: 1 bolus; Site: right antecubital; 22:01 Follow up: IV Status: Completed infusion; IV Intake: 1000ml vc1 21:53 Drug: Rocephin IV 1 grams IV at calculated rate once; Given slow IV push per pharmacy vc1 instructions Route: IV; Rate: calculated rate; Site: right antecubital; 22:00 Follow up: IV Status: Completed infusion; IV Intake: 10ml vc1 Disposition: 01/18 12:09 Co-signature as Attending Physician, Ethan Burroughs MD I reviewed the patient's care rt provided by the Advanced Practice Provider and agree with the diagnosis and treatment plan. Disposition Summary: 01/17/25 21:50 Discharge Ordered Notes: Location: Home kb Condition: Stable kb Diagnosis - UTI/ Urinary tract infection, site not specified kb Followup: kb - With: Emergency Department - When: As needed - Reason: Worsening of condition Followup: kb - With: Private Physician - When: 2 - 3 days - Reason: Recheck today's complaints, Continuance of care, Re-evaluation by your physician Discharge Instructions: - Discharge Summary Sheet kb - Urinary Tract Infection, Adult, [id number] kb Forms: - Medication Reconciliation Form kb - Antibiotic Education kb - Prescription Opioid Use kb - Patient Portal Instructions kb - Leadership Thank You Letter kb Prescriptions: - Augmentin 875-125 mg Oral Tablet - take 1 tablet ORAL route every 12 hours for 10 days; 20 tablet; Refills: 0, kb Product Selection Permitted - Zofran 4 mg Oral tablet - take 1 tablet ORAL route every 6 hours As needed; 12 tablet; Refills: 0, kb Product Selection Permitted Signatures: Dispatcher [employer] Malena Wilson, [employer] SERVICES OPERATOR-Zahra Rivera, MARTHA THOMAS iw Elida Ortiz RN RN vc1 Ethan Burroughs MD MD rt
--- NOTE | 2025-01-17 21:51 | ER ---
Nurse's Notes [facility] Name: Lauren Gomez Age: 19 yrs Sex: Female : 2005 Arrival Date: 01/17/2025 Time: 18:41 Bed DX3 Private MD: Diagnosis: UTI/ Urinary tract infection, site not specified Presentation: 01/17 19:32 Chief complaint: Patient states: back and hip pain, cough, chills, vomiting. iw Coronavirus screen: Client presents with at least one sign or symptom that may indicate coronavirus-19. Ebola Screen: No symptoms or risks identified at this time. Initial Sepsis Screen: Does the patient meet any 2 criteria? HR > 90 bpm. Does the patient have a suspected source of infection? No. Patient's initial sepsis screen is negative. Risk Assessment: Do you want to hurt yourself or someone else? Patient reports no desire to harm self or others. 19:32 Method Of Arrival: Ambulatory iw 19:32 Acuity: JEMMA 3 iw Triage Assessment: 21:56 General: Appears in no apparent distress. Behavior is calm, cooperative, appropriate vc1 for age. Pain: Complains of pain in abdomen. EENT: No deficits noted. No signs and/or symptoms were reported regarding the EENT system. Neuro: Level of Consciousness is awake, alert, obeys commands, Oriented to person, place, time, situation, Appropriate for age. Cardiovascular: Capillary refill < 3 seconds Patient's skin is warm and dry. Respiratory: Airway is patent Respiratory effort is even, unlabored, Respiratory pattern is regular, symmetrical, Breath sounds are clear bilaterally. GI: Abdomen is flat, non-distended. : Urine is cloudy. Derm: Skin is intact, is healthy with good turgor, Skin is dry, Skin is normal, Skin temperature is warm. Musculoskeletal: Circulation, motion, and sensation intact. Range of motion: intact in all extremities. PULMONOLOGIST: 21:53 LMP N/A - control method, Not vc1 Historical: - Allergies: 19:33 No Known Allergies; iw - Home Meds: 19:33 None [Active]; iw - PSHx: 19:33 Cyst removal; iw - Immunization history:: Adult Immunizations up to date. - Infectious Disease History:: Denies. - Social history:: Smoking status: Patient uses street drugs, marijuana. Screenin:[facility] ED Fall Risk Assessment (Adult) History of falling in the last 3 months, vc1 including since admission No falls in past 3 months (0 pts) Confusion or Disorientation No (0 pts) Intoxicated or Sedated No (0 pts) Impaired Gait No (0 pts) Mobility Assist Device Used No (0 pt) Altered Elimination No (0 pt) Score/Fall Risk Level 0 - 2 = Low Risk Oriented to surroundings, Maintained a safe environment, Educated pt \T\ family on fall prevention, incl call for assistance when getting out of bed. Abuse screen: Denies threats or abuse. Nutritional screening: No deficits noted. Tuberculosis screening: No symptoms or risk factors identified. Assessment: 22:00 Reassessment: Patient and/or family updated on plan of care and expected duration. Pain vc1 level reassessed. Patient is alert, oriented x 3, equal unlabored respirations, skin warm/dry/pink. Patient states feeling better. Patient states symptoms have improved. Vital Signs: 19:32 BP 125 / 88; Pulse 125; Resp 18; Temp 97.7; Pulse Ox 96% on R/A; iw 21:53 BP 121 / 66; Pulse 90; Resp 18; Temp 98; Pulse Ox 98% ; Weight 74.84 kg; vc1 ED Course: 18:47 Patient arrived in ED. gm2 19:14 Malena Hernandez FNP-C [facility]. kb 19:14 Ethan Burroughs MD is Attending Physician. kb 19:32 Triage completed. iw 20:35 Inserted saline lock: 20 gauge in right antecubital area, using aseptic technique. vc1 Blood collected. Flushed with 10 mL NS. 20:40 [place] Screen Profile Sent. vc1 20:40 Group A Streptococcus Rapid Sent. vc1 20:40 COVID-19 Ag + Flu A+B Ag Sent. vc1 20:40 CBC with Diff Sent. vc1 20:40 CMP Sent. vc1 20:40 Lipase Sent. vc1 20:40 Test, Urine Sent. vc1 20:40 Urinalysis w/ reflexes Sent. vc1 21:53 Elida Ortiz, RN is Primary Nurse. vc1 21:55 Arm band placed on right wrist. vc1 21:55 seen in diagnostic chair. Provided Education on: how to avoid UTIs. vc1 21:57 No provider procedures requiring assistance completed. IV discontinued, intact, vc1 bleeding controlled, No redness/swelling at site. Administered Medications: 20:53 Drug: Ondansetron IVP 4 mg IVP once; over 2 minutes Route: IVP; Site: right antecubital;vc1 21:10 Follow up: Response: No adverse reaction; Marked relief of symptoms; Nausea is decreasedvc1 20:53 Drug: NS 0.9% IV 1000 ml IV at 1 bolus Per protocol; to be given as a bolus over 60 vc1 minutes Route: IV; Rate: 1 bolus; Site: right antecubital; 22:01 Follow up: IV Status: Completed infusion; IV Intake: 1000ml vc1 21:53 Drug: Rocephin IV 1 grams IV at calculated rate once; Given slow IV push per pharmacy vc1 instructions Route: IV; Rate: calculated rate; Site: right antecubital; 22:00 Follow up: IV Status: Completed infusion; IV Intake: 10ml vc1 Medication: 21:55 VIS not applicable for this client. vc1 Intake: 22:00 IV: 10ml; Total: 10ml. vc1 22:01 IV: 1000ml; Total: 1010ml. vc1 Outcome: 21:50 Discharge ordered by MD. guerrero 21:58 Discharged to home ambulatory, with significant other, vc1 21:58 Condition: stable 21:58 Discharge instructions given to patient, Instructed on discharge instructions, follow up and referral plans. medication usage, Demonstrated understanding of instructions, follow-up care, medications, Prescriptions given X 2, 22:00 Patient left the ED. vc1 Signatures: Malena Hernandez FNP-C FNP-Zahra Rivera, RN RN Elida Ortiz RN RN vc1 Idalia Edwards 2
[2025-01-17 22:10] VITALS: BP 121/66; TEMP 98; O2SAT 98
== END 2025-01-17 22:00 | disposition home or self-care (01) ==
LOC: ER 18:41
DX: N39.0 Urinary tract infection, site not specified (principal); Z11.52 Encounter for screening for COVID-19
CPT/HCPCS: 36415; 80053; 81001; 81025; 83690; 85025; 86308; 87070; 87086; 87088; 87428; J0696; J2405; J7030